=== PATIENT | male | born 1990 | race Hispanic/Latino ===

== ENCOUNTER 2018-03-31 19:11 | Emergency (ER) | payer SELFPAY ==
[~2018-03-31] VITALS: Ht 177.8 cm; Wt 91.8 kg
[2018-03-31] MEDS ORDERED: BACITRACIN3.5 GM TOP (22:09)
[2018-03-31 22:22] VITALS: BP 139/77
== END 2018-03-31 22:22 | disposition home or self-care (01) | DRG 935 ==
LOC: ED 19:11
PROC: 2W23X4Z Dressing of Abdominal Wall using Bandage (ICD-10-PCS; principal; 2018-03-31)
DX: T21.22XA Burn of second degree of abdominal wall, initial encounter (principal); T31.0 Burns involving less than 10% of body surface; W40.1XXA Explosion of explosive gases, initial encounter; Y93.G3 Activity, cooking and baking

== ENCOUNTER 2023-12-27 18:19 | Emergency (ER) | payer OTHER ==
[~2023-12-27] VITALS: Ht 177.8 cm; Wt 95.5 kg
[~2023-12-27 18:19] MED LIST: BACITRACIN3.5 GM TOP
[2023-12-27] MEDS ORDERED: Diph, Acellular Pertussis, Tet 0.5 ML/VIAL (Tdap) SDV IM ONE (18:25)
[2023-12-27 18:30] VITALS: BP 147/78
[2023-12-27 19:00] VITALS: BP 145/82
[2023-12-27 19:15] VITALS: BP 148/80
[2023-12-27] MEDS ORDERED: NAPROXEN 250 MG/TAB PO ONE (19:40)
[2023-12-27] MEDS ORDERED: METHOCARBAMOL 500 MG/TAB PO ONE (19:40)
[2023-12-27] MEDS ORDERED: NAPROXEN500 MG PO ×2 (20:07→20:14)
[2023-12-27] MEDS ORDERED: METHOCARBAMOL500 MG PO ×2 (20:07→20:14)
[2023-12-27 20:39] VITALS: BP 148/80
== END 2023-12-27 20:39 | disposition home or self-care (01) | DRG 605 ==
LOC: ED 18:19
DX: S00.83XA Contusion of other part of head, initial encounter (principal); S00.01XA Abrasion of scalp, initial encounter; V49.40XA Driver injured in collision with unspecified motor vehicles in traffic accident, initial encounter